=== PATIENT | female | born 1965 | race Caucasian/White ===

== ENCOUNTER → 2017-12-21 | Outpatient (CLI) | payer BC | LOC: HYPER 06:47 | DX: T81.89XA Other complications of procedures, not elsewhere classified, initial encounter (principal); K60.1 Chronic anal fissure; K64.9 Unspecified hemorrhoids; Y92.89 Other specified places as the place of occurrence of the external cause; Y83.8 Other surgical procedures as the cause of abnormal reaction of the patient, or of later complication, without mention of misadventure at the time of the procedure ==